=== PATIENT | female | born 1965 | race Caucasian/White ===

== ENCOUNTER 2019-08-09 12:52 | Emergency (ER) | payer OTHER ==
[~2019-08-09] VITALS: Ht 165.1 cm; Wt 78.0 kg
--- NOTE | 2019-08-09 13:10 | NUR ---
BIBRA [id number] FROM [facility] C/O L ELBOW INJURY S/P SLIP AND FALL, -KO +ELBOW DEFORMITY. PT AAOX4, VSS. DENIES CP, SOB, N/V, WEAKNESS @ THIS TIME. AWAITING EVAL BY ERMD & WILL CONT TO MONITOR.
[2019-08-09] MEDS ORDERED: PROPOFOL 20 ML IV ONE (13:15)
[2019-08-09] MEDS ORDERED: ONDANSETRON HCL/PF 4 MG/2 ML VIAL ONE (13:18)
[2019-08-09] MEDS ORDERED: HYDROMORPHONE 1 MG/1 ML DISP.SYRIN ONE (13:18)
--- NOTE | 2019-08-09 13:21 | NUR ---
CONSENTED FOR MODERATE SEDATION FOR LT ELBOW REDUCTION. DR. ALLEN EXPLAINED PROCEDURE TO PT, ACKNOWLEDGED & SIGNED FORM.
[2019-08-09] MEDS ORDERED: HYDROMORPHONE INJ 2 MG/ML DISP.SYRIN IV ONE (13:30)
[2019-08-09] MEDS ORDERED: IV NS 0.9% 1,000 ML BAG IV ONE (13:30)
[2019-08-09] MEDS ORDERED: PROPOFOL 200 MG/20 ML VIAL IV ONE (13:30)
[2019-08-09] MEDS ORDERED: ONDANSETRON HCL/PF 4 MG/2 ML VIAL IVP ONE (13:30)
--- NOTE | 2019-08-09 13:30 | NUR ---
DR. ALLEN @ BS FOR PROCEDURAL SEDATION.
--- NOTE | 2019-08-09 13:33 | NUR ---
DR. ALLEN REDUCED LT ELBOW, PT KANDICE WELL. ICEBOX MAN @ BS FOR EVAL. WILL CONT TO MONITOR.
--- NOTE | 2019-08-09 13:54 | NUR ---
CALLED JUAQUIN TILLMAN
--- NOTE | 2019-08-09 13:57 | NUR ---
PT AAOX3, VSS. RR EVEN & UNLABORED. DENIES CP, SOB, N/V @ THIS TIME. WILL CONT TO MONITOR.
--- NOTE | 2019-08-09 15:28 | NUR ---
SPOKE WITH BG FROM [facility]. PT CAN BE DC
--- NOTE | 2019-08-09 15:32 | NUR ---
IV removed. Catheter intact and site benign. Pressure and 4x4 applied to site. No bleeding noted.
--- NOTE | 2019-08-09 16:05 | NUR ---
EXPLAINED TO PATIENT THAT DR DE LA TORRE IS WITH ANOTHER PATIENT BUT SAID THAT THEY CAN NO LONGER WAIT FOR THE ACI. WALKED OUT OF ER WITH STEADY GAIT
[2019-08-09 16:45] VITALS: BP 124/84
--- NOTE | 2019-08-10 13:21 | NUR ---
MARGA JORDAN,TIOGA PRESCRIPTION WRITTEN YESTERDAY GIVEN. WANTS RIGHT ANKLE SWELLING NOTED AND ADDED TO HER RECORD, DR ALLEN WANTS HER RE-REGISTERED TO BE SEEN AGAIN
== END 2019-08-09 16:08 | disposition home or self-care (01) ==
LOC: ER 12:54
DX: S52.122A Displaced fracture of head of left radius, initial encounter for closed fracture (principal); S42.452A Displaced fracture of lateral condyle of left humerus, initial encounter for closed fracture; F43.10 Post-traumatic stress disorder, unspecified; G89.29 Other chronic pain; Z88.6 Allergy status to analgesic agent; W01.0XXA Fall on same level from slipping, tripping and stumbling without subsequent striking against object, initial encounter; Y93.89 Activity, other specified; Y92.89 Other specified places as the place of occurrence of the external cause; Y99.8 Other external cause status
CPT/HCPCS: 24620; 70450; 73070 ×2; 73130; 96374; 96375; 99152; 99285; J1170; J2405; J2704; J7030; G0500